=== PATIENT | female | born 1960 | race African-American/Black ===

== ENCOUNTER 2017-05-31 06:34 | Observation (INO) | payer OTHER ==
[~2017-05-31] VITALS: Ht 170.2 cm; Wt 119.7 kg
[~2017-05-31 06:34] MED LIST: ALBU1AER9 INH; ALPR-411 PO; AMLO-114 PO; FURO40TA3 PO; HYDR-4313 PO; INSDGI SC; LEVO150T PO; MOME200A INH; OXGN; POTA20TA16 PO; RANI300T2 PO; SERT-234 PO; VLT/50 PO
[2017-05-31] MEDS ORDERED: GLIP2.5T11 PO ×2 (06:50→10:27)
[2017-05-31] MEDS ORDERED: METHYLPREDNISOLONE 125 MG VIAL IV STA (06:55)
[2017-05-31] MEDS ORDERED: SODIUM CHLORIDE 0.9% 1000ML 1,000 ML IV STA (06:55)
[2017-05-31] MEDS ORDERED: ALBUT/IPRATROP 3MG/0.5MG NEB 3 ML VIAL INH STA (06:55)
[2017-05-31] MEDS ORDERED: OPTIRAY 320 IV PRN (07:15)
[2017-05-31] MEDS ORDERED: HYDROmorphone INJ 0.5 MG/0.5 ML SYR IV STA (07:51)
--- NOTE | 2017-05-31 07:52 | DIAGNOSTIC IMAGING REPORT ---
LEFT HUMERUS MIN 2 VIEWS ROUTINE CLINICAL HISTORY: fall trauma. Pain. COMPARISON: None. DISCUSSION: Fracture proximal humerus at the level of the humeral neck. Extension to the lateral margin of the humeral head. No evidence of dislocation with the left within limitations the study. There is no evidence for soft tissue swelling. IMPRESSION: Fracture left humeral head and neck The above report was generated using voice recognition software. It may contain grammatical, syntax or spelling errors. Electronically signed by: Dwayne Camarena M.D. 05/31/2017 7:51 AM Dictated Date/Time: 05/31/2017 7:50 AM
--- NOTE | 2017-05-31 07:53 | DIAGNOSTIC IMAGING REPORT ---
CHEST ONE VIEW PORTABLE CLINICAL HISTORY: EVALUATE WEAKNESS dyspnea COMPARISON STUDY: 03/29/2016 FINDINGS: The bones soft tissues and hemidiaphragms are normal. The cardiomediastinal silhouette is normal. The lungs are clear. The pulmonary vasculature is normal. Fracture left humeral head and neck previously described IMPRESSION: Negative chest. Fracture left humeral head and neck previously described The above report was generated using voice recognition software. It may contain grammatical, syntax or spelling errors. Electronically signed by: Dwayne Camarena M.D. 05/31/2017 7:52 AM Dictated Date/Time: 05/31/2017 7:51 AM
[2017-05-31 08:09] LABS: ISTAT CREATININE 0.6 mg/dl (0.6-1.3); ISTAT HEMOGLOBIN 13.9 g/dl (12.0-16.0); ISTAT IONIZED CALCIUM 1.12 mmol/l (1.12-1.32)
--- NOTE | 2017-05-31 09:03 | DIAGNOSTIC IMAGING REPORT ---
HEAD WITHOUT CONTRAST (CT) CT DOSE: 2571.54 mGy.cm HISTORY: Trauma fall, headache TECHNIQUE: Multiaxial CT images of the head were performed without the use of intravenous contrast. Comparison: None. Findings: The paranasal sinuses and mastoid air cells are clear. The calvarium and skull base are intact. The ventricles and sulci are within normal limits. There is no mass, hematoma, midline shift, or acute infarct. Impression: No acute intracranial abnormality. The above report was generated using voice recognition software. It may contain grammatical, syntax or spelling errors. Electronically signed by: Dwayne Camarena M.D. 05/31/2017 9:02 AM Dictated Date/Time: 05/31/2017 9:01 AM
--- NOTE | 2017-05-31 09:12 | DIAGNOSTIC IMAGING REPORT ---
(CHEST) THORAX WITH CT DOSE: HISTORY: Trauma fall, chest pain TECHNIQUE: Multiaxial CT images of the chest were performed following the intravenous administration of contrast. COMPARISON: None. FINDINGS: Fracture left humeral head and neck as has been described previously. Lungs are considered clear. No significant mediastinal or hilar adenopathy. IMPRESSION: Fracture left humeral head and neck. Otherwise negative study The above report was generated using voice recognition software. It may contain grammatical, syntax or spelling errors. Electronically signed by: Dwayne Camarena M.D. 05/31/2017 9:10 AM Dictated Date/Time: 05/31/2017 9:04 AM
[2017-05-31 09:48] VITALS: O2SAT 94; Ht 170.2 cm; Wt 119.7 kg
[2017-05-31 09:57] LABS: BASO % 0.1 %; BASO ABS # 0.01 K/uL (0-0.2); COMPLETE YES; EOS % 0.7 %; HEMATOCRIT 36.1 % (37-47); IG% 0.4 %; LYMPH % 12.7 %; LYMPH ABS # 1.92 K/uL (1.2-3.4); MEAN CELL VOLUME 92.1 fL (80-100); MEAN CORPUSCULAR HEMOGLOBIN 28.8 pg (25-34); MEAN CORPUSCULAR HGB CONC 31.3 g/dl (32-36); MEAN PLATELET VOLUME 8.6 fL (7.4-10.4); MONO % 4.4 %; NEUT % 81.7 %; PLATELET COUNT 310 K/uL (130-400); RED BLOOD COUNT 3.92 M/uL (4.2-5.4); WHITE BLOOD COUNT 15.17 K/uL (4.8-10.8)
[2017-05-31 10:08] LABS: PARTIAL THROMBOPLASTIN RATIO 1.1; PROTHROMBIN TIME (PATIENT) 10.6 SECONDS (9.0-12.0)
[2017-05-31] MEDS ORDERED: ONDANSETRON INJ 2 MG/ML 2 ML VIAL IV PRN (10:15)
[2017-05-31 10:24] LABS: BUN/CREATININE RATIO 11.1 (10-20); CALCIUM 8.6 mg/dl (8.5-10.1); CREATININE 0.62 mg/dl (0.60-1.20); MAGNESIUM 1.8 mg/dl (1.8-2.4); POTASSIUM 3.2 mmol/L (3.5-5.1)
[2017-05-31] MEDS ORDERED: VALA500T60 PO (10:27)
[2017-05-31] MEDS ORDERED: NICO7DIS7 TD (10:27)
[2017-05-31] MEDS ORDERED: ALBINS/ INH (10:27)
[2017-05-31] MEDS ORDERED: GUAI-13 PO (10:27)
[2017-05-31] MEDS ORDERED: ARTISOL12 OP (10:27)
[2017-05-31] MEDS ORDERED: LVQ750 PO (10:27)
[2017-05-31] MEDS ORDERED: HYDR2TAB2 PO (10:27)
[2017-05-31] MEDS ORDERED: RANI1TAB75 PO (10:27)
[2017-05-31] MEDS ORDERED: ATOR10TA88 PO (10:27)
[2017-05-31] MEDS ORDERED: ZIPR60CA PO (10:27)
[2017-05-31] MEDS ORDERED: GUAI100S6 PO (10:27)
[2017-05-31] MEDS ORDERED: UMEC1INH INH (10:27)
[2017-05-31] MEDS ORDERED: SPRIN/30 INH (10:27)
[2017-05-31] MEDS ORDERED: ZOLP10TA PO (10:27)
[2017-05-31] MEDS ORDERED: ABL/5 PO (10:27)
[2017-05-31] MEDS ORDERED: LEVO75TA PO (10:27)
[2017-05-31] MEDS ORDERED: MONT1TAB5 PO (10:27)
[2017-05-31] MEDS ORDERED: OMEP20TA PO (10:27)
[2017-05-31 10:32] LABS: CKMB/CK RATIO 0.5 (0-3.0); THYROID STIMULATING HORMONE 4.6 uIu/ml (0.300-4.500)
[2017-05-31] MEDS ORDERED: GUAIFENESIN/CODEINE 100MG/10MG 5ML UDC PO PRN (10:45)
[2017-05-31] MEDS ORDERED: ALBUTEROL 0.083% NEBU SOLN 3 ML VIAL INH PRN (10:45)
[2017-05-31] MEDS ORDERED: ARTIFICIAL TEARS OP SOLN OP PRN ×2 (10:45)
[2017-05-31] MEDS ORDERED: CLONIDINE HCL 0.1 MG TAB PO ONE (12:00)
[2017-05-31] MEDS ORDERED: CLONIDINE HCL 0.1 MG TAB PO PRN (12:00)
[2017-05-31] MEDS ORDERED: IV FLUIDS COMPLETED PRN (12:15)
[2017-05-31] MEDS: HYDROmorphone HCL 2 MG TAB PO PRN ×2 (12:20→17:11)
[2017-05-31] MEDS: LEVOFLOXACIN 750 MG TAB PO SCH (12:21)
[2017-05-31] MEDS ORDERED: METHYLPREDNISOLONE IV 20 MG in SYRINGE 0 ML IV ONE (12:30)
[2017-05-31 14:16] VITALS: BP 160/83
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
[2017-05-31 15:33] VITALS: BP 162/88; PULSE 82; TEMP 36.6; O2SAT 95
[2017-05-31] MEDS: UMECLIDINIUM BROMIDE SCH ×2 (16:48→23:37)
[2017-05-31] MEDS ORDERED: OXYCODONE/ACETAMINOPHEN 5-325 TAB PO PRN (17:45)
[2017-05-31 20:25] LABS: URINE APPEARANCE CLEAR (CLEAR); URINE BILIRUBIN NEG (NEG); URINE COLOR YELLOW; URINE NITRITE NEG (NEG); URINE PH 6.5 (4.5-7.5); UROBILINOGEN NEG (NEG)
[2017-05-31 20:32] LABS: MANUAL MICROSCOPIC REQUIRED? NO; REVIEW REQ? NO
[2017-05-31] MEDS: NICOTINE 7 MG/24 HR TDSY TD SCH (20:39)
[2017-05-31] MEDS: ARIPIprazole TAB 5 MG TAB PO SCH (20:41)
[2017-05-31] MEDS: ZIPRASIDONE 20 MG CAP PO SCH (20:41)
[2017-05-31] MEDS: RANITIDINE HCL 150 MG TAB PO SCH (20:42)
[2017-05-31] MEDS: METHYLPREDNISOLONE IV 20 MG in SYRINGE 0 ML IV SCH (20:42)
[2017-05-31] MEDS: ZOLPIDEM TARTRATE 10 MG TAB PO SCH (22:05)
[2017-05-31 23:08] VITALS: BP 172/93; PULSE 79; TEMP 36.9; O2SAT 93
[2017-05-31] MEDS ORDERED: GLUCAGON FOR INJ 1 MG VIAL SQ PRN (23:15)
[2017-05-31] MEDS ORDERED: GLUCOSE 10 TABS/TUBE PO PRN (23:15)
[2017-05-31] MEDS ORDERED: DEXTROSE 50% 50 ML SYR IV PRN (23:15)
[2017-05-31] MEDS ORDERED: GLUCOSE 40% GEL 15 GM TUBE PO PRN (23:15)
[2017-05-31] MEDS ORDERED: PHARMACY GLYCEMIC MGMT CONSULT PRN (23:28)
[2017-05-31] MEDS ORDERED: INSULIN GLARGINE SOLOSTAR 100 UNITS/ML 3 ML PEN SC STA (23:35)
[2017-05-31] MEDS ORDERED: INSULIN ASPART 100 UNITS/ML 3 ML PEN SC STA (23:36)
[2017-05-31] MEDS: ALPRAZOLAM 0.5 MG TAB PO PRN (23:38)
[2017-05-31] MEDS: CLONIDINE HCL 0.1 MG TAB PO PRN (23:38)
[2017-06-01] MEDS: OXYCODONE/ACETAMINOPHEN 10/325MG TAB PO PRN ×4 (02:42→19:36)
[2017-06-01 03:51] VITALS: BP 140/88; PULSE 72
[2017-06-01] MEDS ORDERED: INSULIN ASPART 100 UNITS/ML 3 ML PEN SC SCH (04:00)
[2017-06-01] MEDS: LEVOTHYROXINE 75 MCG TAB PO SCH (05:57)
[2017-06-01] MEDS: HYDROmorphone INJ 0.5 MG/0.5 ML SYR IV PRN ×3 (06:28→20:52)
[2017-06-01 07:24] VITALS: BP 145/89; PULSE 68; TEMP 36.5; O2SAT 91
[2017-06-01] MEDS: UMECLIDINIUM BROMIDE SCH ×3 (07:40→22:55)
[2017-06-01] MEDS: INSULIN ASPART 100 UNITS/ML 3 ML PEN SC SCH ×4 (07:45→21:05)
[2017-06-01] MEDS ORDERED: INSULIN GLARGINE SOLOSTAR 100 UNITS/ML 3 ML PEN SC SCH (09:00)
[2017-06-01] MEDS ORDERED: NICOTINE 7 MG/24 HR TDSY TD SCH (09:00)
[2017-06-01] MEDS: TIOTROPIUM BROMIDE 5 PUFF/90 MCG INH INH SCH (09:01)
[2017-06-01] MEDS: MONTELUKAST SOD 10 MG TAB PO SCH (09:02)
[2017-06-01] MEDS: ATORVASTATIN 10 MG TAB PO SCH (09:02)
[2017-06-01] MEDS: PANTOprazole SOD 40 MG TAB PO SCH (09:02)
[2017-06-01] MEDS: METHYLPREDNISOLONE IV 20 MG in SYRINGE 0 ML IV SCH ×2 (09:02→20:52)
[2017-06-01] MEDS: ZIPRASIDONE 20 MG CAP PO SCH ×2 (09:03→20:56)
[2017-06-01] MEDS: LEVOFLOXACIN 750 MG TAB PO SCH (09:04)
[2017-06-01] MEDS: RANITIDINE HCL 150 MG TAB PO SCH ×2 (09:04→20:54)
[2017-06-01] MEDS: ARIPIprazole TAB 5 MG TAB PO SCH ×2 (09:04→20:53)
[2017-06-01] MEDS: FUROSEMIDE 40 MG TAB PO SCH (09:04)
[2017-06-01] MEDS: NICOTINE 7 MG/24 HR TDSY TD SCH (09:11)
[2017-06-01] MEDS ORDERED: PSYLLIUM 58.6% PWD PACK S\\F PO ONE (09:20)
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
--- NOTE | 2017-06-01 15:09 | Pharmacy Progress Note ---
Glycemic Control Intl Consult Date of Service Jun 01, 2017. Scope Glycemic Pharmacist consulted by Dr Mcguire on 05/31 for glycemic control and to write orders per [facility] inpatient glycemic control protocol Objective Weight (Kilograms): 119.700 Accuchecks BSG (last 24hrs): Test 05/31/17 17:03 05/31/17 20:41 05/31/17 23:45 06/01/17 03:50 Bedside Glucose 215 mg/dl (70-90) 277 mg/dl (70-90) 199 mg/dl (70-90) 190 mg/dl (70-90) Test 06/01/17 07:36 06/01/17 12:14 Bedside Glucose 167 mg/dl (70-90) 162 mg/dl (70-90) Laboratory Data (last 24hrs) Test 06/01/17 07:20 HbA1c Test 06/01/17 07:20 Recent Pertinent Medications Outpatient Anti-diabetic Regimen: * Glipizide ER 2.5 mg daily * A1c = 7.7 % 05/10/16, current one pending The patient is currently receiving: * Basal insulin: Lantus 20 units x 1 overnight * Correctional Insulin: Novolog Correction per scale ACHS Goal Range: Low 110 mg/dL - High 140 mg/dL Correction Factor: 20 mg/dL/unit * Prandial insulin: Per carb ratio of 1 unit per 7 grams CHO consumed * Oral Agents: None at this time Risk Factors for Insulin Resistance: * Steroids: Solu-medrol 125 mg x 1 yesterday, now on 20 mg IV q12h * Infection: on Levaquin for COPD exacerbation * Diet: type 2 diabetes * L humeral head and neck fracture Assessment & Plan ASSESSMENT: * 56 y/o female admitted s/p fall with humeral head and neck fracture - no need for surgical intervention * Pt is maintained on oral antidiabetic agents as an outpatient * Oral agents are not recommended for inpatient use d/t drug interactions, changing PO intake, and difficulty titrating for acute hyper/hypoglycemia. ADA recommends re-initiating outpatient oral agents 1-2 days prior to discharge if/ when appropriate if they were held on admission. * Will hold oral agents for admission and utilize SQ basal bolus insulin regimen which is the recommended regimen for inpatient glycemic control. * Will initiate weight based insulin dosing for insulin andrew patient and titrate based on BSG trends. * Will utilize stress level of 2, but have basal/bolus split be 40/60, d/t IV steroids being on board * ADA & AACE recommend a goal blood sugar range 140-180 mg/dl for the majority of critically ill & non-critically ill patients. However, more stringent targets may be selected in individual cases. Will utilize more stringent goal of 110-140mg/dl based on patient age & comorbidities. Additionally, tighter glycemic control is warranted to facilitate wound/infection healing. PLAN FOR INPATIENT GLYCEMIC CONTROL: * Lantus 30 units x 1 w/ dinner today, then split BID starting tomorrow AM * Continue correction factor of 20 mg/dl/unit * Continue carb ratio of 1 unit per 7 grams CHO consumed * Continue goal range of Low 110 mg/dL - High 140 mg/dL * A1c w/ AM labs to assess outpatient control and guide discharge recommendations * Please note that the plan above was derived based on current level of insulin resistance and hospital stress. These recommendations are appropriate for inpatient admission only. Plan of care upon discharge will need to be reassessed to avoid potential outpatient hypo/hyperglycemia. Thank you.
[2017-06-01 15:42] VITALS: BP 134/98; PULSE 64; TEMP 36.4; O2SAT 94
[2017-06-01 16:30] VITALS: O2SAT 94
[2017-06-01] MEDS ORDERED: INSULIN GLARGINE SOLOSTAR 100 UNITS/ML 3 ML PEN SC ONE (17:00)
[2017-06-01 22:45] VITALS: BP 151/97; PULSE 67; TEMP 36.5; O2SAT 97
[2017-06-01] MEDS: ZOLPIDEM TARTRATE 10 MG TAB PO SCH (22:54)
[2017-06-01] MEDS: ALPRAZOLAM 0.5 MG TAB PO PRN (22:54)
[2017-06-02] VITALS (8 sets, daily range): BP systolic 137–176; BP diastolic 72–98; PULSE 63–75; TEMP 36.3–36.5; O2SAT 91–100
[2017-06-02] MEDS: OXYCODONE/ACETAMINOPHEN 10/325MG TAB PO PRN ×5 (00:39→21:33)
[2017-06-02] MEDS: LEVOTHYROXINE 75 MCG TAB PO SCH (05:29)
[2017-06-02 06:50] LABS: ESTIMATED AVERAGE GLUCOSE 157 mg/dl; HA1C FLAG Normal (Normal)
--- NOTE | 2017-06-02 07:01 | Consultant Recommendations ---
Spinner Hand Recommendations Date of Service Jun 02, 2017. Spinner Hand Recommendations MAINTAIN LEFT UPPER EXTREMITY IN SLING AT ALL TIMES. FOLLOW UP IN 7-[address]RAYS WITH [address]. CAREY- [phone]
[2017-06-02] MEDS: UMECLIDINIUM BROMIDE SCH ×2 (08:00→16:00)
[2017-06-02] MEDS: HYDROmorphone INJ 0.5 MG/0.5 ML SYR IV PRN ×4 (08:25→23:26)
[2017-06-02] MEDS: INSULIN ASPART 100 UNITS/ML 3 ML PEN SC SCH ×4 (08:32→21:00)
[2017-06-02] MEDS: INSULIN GLARGINE SOLOSTAR 100 UNITS/ML 3 ML PEN SC SCH ×2 (08:34→21:48)
[2017-06-02] MEDS: LIDODERM (LIDOCAINE) PATCH 5% TD SCH (08:35)
[2017-06-02] MEDS: TIOTROPIUM BROMIDE 5 PUFF/90 MCG INH INH SCH (08:36)
[2017-06-02] MEDS: METHYLPREDNISOLONE IV 20 MG in SYRINGE 0 ML IV SCH ×2 (08:37→21:34)
[2017-06-02] MEDS: FUROSEMIDE 40 MG TAB PO SCH (08:42)
[2017-06-02] MEDS: ARIPIprazole TAB 5 MG TAB PO SCH ×2 (08:42→21:34)
[2017-06-02] MEDS: MONTELUKAST SOD 10 MG TAB PO SCH (08:42)
[2017-06-02] MEDS: PANTOprazole SOD 40 MG TAB PO SCH (08:42)
[2017-06-02] MEDS: RANITIDINE HCL 150 MG TAB PO SCH ×2 (08:43→21:33)
[2017-06-02] MEDS: ATORVASTATIN 10 MG TAB PO SCH (08:43)
[2017-06-02] MEDS: LEVOFLOXACIN 750 MG TAB PO SCH (08:44)
[2017-06-02] MEDS: ZIPRASIDONE 20 MG CAP PO SCH (08:45)
[2017-06-02] MEDS: NICOTINE 7 MG/24 HR TDSY TD SCH (08:48)
[2017-06-02] MEDS ORDERED: PSYLLIUM 58.6% PWD PACK S\\F PO SCH (09:00)
[2017-06-02 10:20] LABS: HEMATOCRIT 38.3 % (37-47); MEAN CORPUSCULAR HEMOGLOBIN 29.4 pg (25-34); MEAN CORPUSCULAR HGB CONC 31.6 g/dl (32-36); MEAN PLATELET VOLUME 8.7 fL (7.4-10.4); PLATELET COUNT 353 K/uL (130-400); RED BLOOD COUNT 4.12 M/uL (4.2-5.4)
[2017-06-02 10:48] LABS: BUN/CREATININE RATIO 20.5 (10-20); CALCIUM 9.3 mg/dl (8.5-10.1); CREATININE 0.77 mg/dl (0.60-1.20); POTASSIUM 3.7 mmol/L (3.5-5.1)
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
[2017-06-02] MEDS ORDERED: SUMATRIPTAN SUCCINATE 50 MG TAB PO ONE (15:00)
[2017-06-02] MEDS: CLONIDINE HCL 0.1 MG TAB PO PRN (20:10)
[2017-06-02] MEDS: ZOLPIDEM TARTRATE 10 MG TAB PO SCH (21:48)
[2017-06-02] MEDS ORDERED: BISACODYL 10 MG SUPP PR PRN (22:00)
[2017-06-02] MEDS: POLYETHYLENE (MIRALAX) 17 GM PACK PO SCH (22:41)
[2017-06-03] MEDS ORDERED: NITROGLYCERIN OINT 2% 1GM PACKET EXT ONE (00:49)
[2017-06-03 01:00] LABS: CKMB/CK RATIO 1.7 (0-3.0)
[2017-06-03 01:03] VITALS: BP 128/95
[2017-06-03] MEDS: OXYCODONE/ACETAMINOPHEN 10/325MG TAB PO PRN ×4 (02:03→16:33)
[2017-06-03 03:33] VITALS: BP 135/83
[2017-06-03] MEDS: HYDROmorphone INJ 0.5 MG/0.5 ML SYR IV PRN ×5 (04:01→23:47)
[2017-06-03] MEDS: LEVOTHYROXINE 75 MCG TAB PO SCH (06:19)
[2017-06-03] MEDS: UMECLIDINIUM BROMIDE SCH ×4 (08:00→23:48)
[2017-06-03 08:13] VITALS: BP 120/79; PULSE 64; TEMP 36.5; O2SAT 95
[2017-06-03] MEDS: LIDODERM (LIDOCAINE) PATCH 5% TD SCH (09:01)
[2017-06-03] MEDS: TIOTROPIUM BROMIDE 5 PUFF/90 MCG INH INH SCH (09:02)
[2017-06-03] MEDS: ARIPIprazole TAB 5 MG TAB PO SCH (09:02)
[2017-06-03] MEDS: METHYLPREDNISOLONE IV 20 MG in SYRINGE 0 ML IV SCH (09:02)
[2017-06-03] MEDS: RANITIDINE HCL 150 MG TAB PO SCH ×2 (09:02→20:42)
[2017-06-03] MEDS: FUROSEMIDE 40 MG TAB PO SCH (09:04)
[2017-06-03] MEDS: LEVOFLOXACIN 750 MG TAB PO SCH (09:04)
[2017-06-03] MEDS: PANTOprazole SOD 40 MG TAB PO SCH (09:04)
[2017-06-03] MEDS: NICOTINE 7 MG/24 HR TDSY TD SCH (09:04)
[2017-06-03] MEDS: ATORVASTATIN 10 MG TAB PO SCH (09:04)
[2017-06-03] MEDS: MONTELUKAST SOD 10 MG TAB PO SCH (09:04)
[2017-06-03] MEDS: POLYETHYLENE (MIRALAX) 17 GM PACK PO SCH ×2 (09:07→20:41)
[2017-06-03] MEDS: INSULIN ASPART 100 UNITS/ML 3 ML PEN SC SCH ×4 (09:15→20:46)
[2017-06-03] MEDS: INSULIN GLARGINE SOLOSTAR 100 UNITS/ML 3 ML PEN SC SCH ×2 (09:17→20:46)
--- NOTE | 2017-06-03 09:26 | Pharmacy Progress Note ---
Glycemic Control Progress Note Date of Service Jun 03, 2017. Scope Glycemic Pharmacist consulted for glycemic control to write orders per [facility] inpatient glycemic control protocol. Objective Accuchecks BSG (last 24hrs): Test 06/02/17 09:57 06/02/17 13:11 06/02/17 17:12 06/02/17 20:54 Random Glucose 122 mg/dl (70-99) Bedside Glucose 151 mg/dl (70-90) 93 mg/dl (70-90) 127 mg/dl (70-90) HbA1c: Test 06/01/17 07:20 Hemoglobin A1c 7.1 % (4.5-5.6) H Recent Pertinent Medications The patient is currently receiving: * Basal insulin: * Lantus 15 units every 12 hours * Correctional Insulin: * NovoLog SQ AC/HS - Goal Range: Low 110 mg/dL - High 140 mg/dL - Correction Factor: 20 mg/dL/unit - Carb ratio of 1 unit per 7 grams CHO consumed Outpatient Anti-Diabetic Meds Glipizide ER 2.5mg PO daily Assessment & Plan ASSESSMENT: * See progress note from 06/01/17 for more background info, in short: * Pt receiving SQ basal bolus insulin regimen for hyperglycemia secondary to baseline DM (outpatient regimen on hold) and around the clock IV steroids * Patient is currently receiving an average of 50 units of insulin per day * Changes needed to insulin regimen: * AM Fasting BSG = 113 mg/dl. This is within goal range for patient based on inpatient targets and co-morbidities. Therefore Basal insulin will remain the same - if fasting BSG drops to less than 100mg/dL - recommend decreasing basal insulin * Post-prandial BSGs are in range therefore no changes needed to CF/CR * Additional notes / comments: * ATC IV steroids continue - when these are tapered, insulin regimen will need to be adjusted PLAN FOR INPATIENT GLYCEMIC CONTROL: * Basal insulin: * Lantus 15 units every 12 hours * Correctional Insulin: * NovoLog SQ AC/HS - Goal Range: Low 110 mg/dL - High 140 mg/dL - Correction Factor: 20 mg/dL/unit - Carb ratio of 1 unit per 7 grams CHO consumed RECOMMENDATIONS FOR DISCHARGE: * Continue home regimen of Glipizide ER 2.5mg PO daily as A1c indicates appropriate glycemic control * Please note that the plan above was derived based on current level of insulin resistance and hospital stress. These recommendations are appropriate for inpatient admission only. Plan of care upon discharge will need to be reassessed to avoid potential outpatient hypo/hyperglycemia. Thank you.
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
[2017-06-03] MEDS ORDERED: ARIP1TAB8 PO (12:17)
[2017-06-03 16:02] VITALS: BP 163/88; PULSE 64; TEMP 36.9; O2SAT 95
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
[2017-06-03] MEDS ORDERED: OXYCODONE/ACETAMINOPHEN 5-325 TAB PO ONE (20:15)
[2017-06-03] MEDS ORDERED: ARIPIprazole TAB 10 MG TAB PO SCH (21:00)
[2017-06-03] MEDS: ZOLPIDEM TARTRATE 10 MG TAB PO SCH (22:17)
[2017-06-03] MEDS: HEPARIN SOD 5000 UNIT/0.5 ML CARP SQ SCH (22:19)
[2017-06-03 22:50] VITALS: BP 151/85; PULSE 64; TEMP 36.6; O2SAT 84
[2017-06-03 22:55] VITALS: O2SAT 94
[2017-06-04] MEDS: OXYCODONE/ACETAMINOPHEN 10/325MG TAB PO PRN ×3 (03:51→15:28)
[2017-06-04] MEDS: LEVOTHYROXINE 75 MCG TAB PO SCH (05:50)
[2017-06-04] MEDS: HEPARIN SOD 5000 UNIT/0.5 ML CARP SQ SCH ×2 (05:53→14:01)
[2017-06-04] MEDS: HYDROmorphone INJ 0.5 MG/0.5 ML SYR IV PRN ×2 (05:54→13:02)
[2017-06-04 06:48] VITALS: BP 109/83; PULSE 66; TEMP 36.7; O2SAT 91
[2017-06-04] MEDS: UMECLIDINIUM BROMIDE SCH ×2 (08:00→15:29)
[2017-06-04] MEDS: MONTELUKAST SOD 10 MG TAB PO SCH (09:33)
[2017-06-04] MEDS: PANTOprazole SOD 40 MG TAB PO SCH (09:33)
[2017-06-04] MEDS: RANITIDINE HCL 150 MG TAB PO SCH (09:33)
[2017-06-04] MEDS: ATORVASTATIN 10 MG TAB PO SCH (09:33)
--- NOTE | 2017-06-04 09:33 | Pharmacy Progress Note ---
Glycemic Control Progress Note Date of Service Jun 04, 2017. Scope Glycemic Pharmacist consulted for glycemic control to write orders per [facility] inpatient glycemic control protocol. Objective Accuchecks BSG (last 24hrs): Test 06/03/17 12:05 06/03/17 16:50 06/03/17 20:39 06/04/17 08:10 Bedside Glucose 133 mg/dl (70-90) 198 mg/dl (70-90) 151 mg/dl (70-90) 136 mg/dl (70-90) HbA1c: Test 06/01/17 07:20 Hemoglobin A1c 7.1 % (4.5-5.6) H Recent Pertinent Medications The patient is currently receiving: * Basal insulin: Lantus 15 units every 12 hours * Correctional Insulin: Novolog Correction per scale ACHS Goal Range: Low 110 mg/dL - High 140 mg/dL Correction Factor: 20 mg/dL/unit * Prandial insulin: Per carb ratio of 1 unit per 7 grams CHO consumed Outpatient Anti-Diabetic Meds Glipizide ER 2.5 mg po daily Assessment & Plan ASSESSMENT: * See progress note from 06/01/17 for more background info, in short: * Pt receiving SQ basal bolus insulin regimen for hyperglycemia secondary to baseline DM, infection, and around the clock IV steroids * Steroids decreased today; Solu Medrol 20 mg IV every 12 hours -> Prednisone 20 mg PO daily * Patient is currently receiving an average of 57 units of insulin per day * 30 units of basal insulin * 27 units of prandial/correctional insulin * BSGs ranging 113 - 198 mg/dl over the past 24hrs * Changes needed to insulin regimen: * AM Fasting BSG = 136 mg/dl. This is near goal range for patient based on inpatient targets and co-morbidities, however, I anticipate this value to further decrease as steroids are tapered off. Will decrease basal insulin. * Post-prandial BSGs are in range or slightly elevated. Will need to loosen CF /CR as steroid effect dissipates. * Anticipate total daily dose = 45 units. Will re-distribute regimen with goal of 40%:60% basal:prandial since steroids have most profound on prandial BSG. Once steroids are discontinued, will aim for 50%:50% basal:prandial. PLAN FOR INPATIENT GLYCEMIC CONTROL: * Basal insulin - decrease * Lantus 12-15 units SQ BID * 12 units for BSG less than 180 mg/dL, 15 units for BSG 180 mg/dL or more * Bolus insulin * NovoLog per scale ACHS * Goal Range: Low 110 mg/dL - High 140 mg/dL * Correction Factor: 20 mg/dL/unit * Nutritional / Prandial insulin per carb ratio of 1 unit per 9 grams CHO consumed * IF BSG trending down at dinnertime, will change to CF/CR 11/08 RECOMMENDATIONS FOR DISCHARGE: * Continue home regimen of Glipizide ER 2.5mg PO daily as A1c indicates appropriate glycemic control * Please note that the plan above was derived based on current level of insulin resistance and hospital stress. These recommendations are appropriate for inpatient admission only. Plan of care upon discharge will need to be reassessed to avoid potential outpatient hypo/hyperglycemia. Thank you.
[2017-06-04] MEDS: TIOTROPIUM BROMIDE 5 PUFF/90 MCG INH INH SCH (09:34)
[2017-06-04] MEDS: FUROSEMIDE 40 MG TAB PO SCH (09:34)
[2017-06-04] MEDS: LEVOFLOXACIN 750 MG TAB PO SCH (09:34)
[2017-06-04] MEDS: POLYETHYLENE (MIRALAX) 17 GM PACK PO SCH (09:34)
[2017-06-04] MEDS: LIDODERM (LIDOCAINE) PATCH 5% TD SCH (09:35)
[2017-06-04] MEDS: NICOTINE 7 MG/24 HR TDSY TD SCH (09:36)
[2017-06-04] MEDS: INSULIN ASPART 100 UNITS/ML 3 ML PEN SC SCH ×2 (09:52→12:56)
[2017-06-04] MEDS: INSULIN GLARGINE SOLOSTAR 100 UNITS/ML 3 ML PEN SC SCH (09:53)
[2017-06-04 15:00] VITALS: BP 150/84; PULSE 71; TEMP 36.7; O2SAT 91
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
[2017-06-04] MEDS ORDERED: LDDP5 TD (16:07)
[2017-06-04] MEDS ORDERED: HYDR2TAB2 PO (16:07)
[2017-06-04] MEDS ORDERED: LVQ750 PO (16:09)
--- NOTE | 2017-06-04 16:22 | Discharge Instructions ---
Discharge Instructions Date of Service Jun 04, 2017. Admission Reason for Admission: Closed Lt Humeral Fracture,Copd Exacerbation Discharge Discharge Diagnosis / Problem: Closed left Humeral Head and Neck fracture , COPD, CISCO Discharge Goals Goal(s): Decrease discomfort, Improve function, Increase independence, Improve disease control Activity Recommendations Activity Limitations: per Instructions/Follow-up section Instructions / Follow-Up Instructions / Follow-Up Discharge to [facility] for rehab Please schedule follow up appointment with your physician once you discharge from rehab Continue PT OT Fall precaution No weight lifting in the left upper extremities Counseling on smoking and cocaine cessation .MAINTAIN LEFT UPPER EXTREMITY IN SLING AT ALL TIMES FOR 4-6 WEEKS FOLLOW UP IN 7-[address]YS [address] CAREY, PLEASE CALL TO SCHEDULE [phone] Current Hospital Diet Patient's current hospital diet: Diabetes Type 2 Diet Discharge Diet Recommended Diet: Diabetes Type 2 Diet Pending Studies Studies pending at discharge: no Laboratory Results Hemoglobin A1c Test 06/01/17 07:20 Range/Units Estimated Average Glucose 157 mg/dl Hemoglobin A1c 7.1 H 4.5-5.6 % Medical Emergencies . Who to Call and When: Medical Emergencies: If at any time you feel your situation is an emergency, please call 911 immediately. . Non-Emergent Contact Non-Emergency issues call your: Primary Care Provider Call Non-Emergent contact if: your pain is not controlled, your pain is worsening, you have any medication questions . . "Provider Documentation" section prepared by Jesse العلي. . [employer]ial [employer] Recommendations Radial [employer] Recommendations: MAINTAIN LEFT UPPER EXTREMITY IN SLING AT ALL TIMES. FOLLOW UP IN 7-10 DAYS FOR XRAYS WITH DR. CAREY- [phone] VTE Core Measure Inpt VTE Proph given/why not?: Unfractionated heparin SQ [place] Drug Monitoring Program Search Results: patient reviewed within database (Many different precribers in the past for narcotic)
[2017-06-04 16:24] VITALS: BP 150/84; PULSE 71; TEMP 36.7; O2SAT 91
[2017-06-04] MEDS ORDERED: INSULIN GLARGINE SOLOSTAR 100 UNITS/ML 3 ML PEN SC SCH (21:00)
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
== END 2017-06-04 17:13 ==
LOC: EDBD 06:34 → C.EDA 06:35 → C.MSN 10:21 → EDBEDREQ 10:23 → ENRESERV 10:33
PROVIDERS: ADMIT Internal Medicine; ATTEND Internal Medicine
DX: S42.302A Unspecified fracture of shaft of humerus, left arm, initial encounter for closed fracture (principal); I11.0 Hypertensive heart disease with heart failure; I50.9 Heart failure, unspecified; E78.5 Hyperlipidemia, unspecified; E11.9 Type 2 diabetes mellitus without complications; J44.9 Chronic obstructive pulmonary disease, unspecified; E03.9 Hypothyroidism, unspecified; W13.4XXA Fall from, out of or through window, initial encounter; F17.210 Nicotine dependence, cigarettes, uncomplicated; Z79.899 Other long term (current) drug therapy; Z99.81 Dependence on supplemental oxygen; S06.0X0A Concussion without loss of consciousness, initial encounter; G89.29 Other chronic pain; M54.5 Low back pain